=== PATIENT | male | born 1995 | race Caucasian/White ===

== ENCOUNTER 2020-03-28 20:24 | Emergency (ER) | payer OTHER, SELFPAY ==
--- NOTE | ~2020-03-28 | XR_ITS ---
XR ankle RT min 3V 03/28/2020 20:49 Indication: Right ankle pain Procedure: 4 views right ankle Comparison: No prior studies for comparison. Findings: There is an oblique distal fibular fracture with one cortical bone width dorsal displacemen t. No significant angulation. Ankle mortise intact. Moderate lateral soft tissue swelling. Talar dome is normal. 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 Impression: 1: Minimally displaced oblique distal fibular fracture. Reviewed, dictated and finalized at location A. [facility] [employer] Impression: 1: Minimally displaced oblique distal fibular fracture.
[2020-03-28 20:31] VITALS: BP 113/75; PULSE 120; RESP 20; TEMP 36.6; O2SAT 99
[2020-03-28] MEDS: HYDROcodone/acetaminophen (*CRX) 5-325 MG TABLET 1 TAB PO (20:44)
--- NOTE | 2020-03-28 21:08 | ED.GENADULT ---
HPI - General Adult General Chief complaint: Extremity Injury, Lower Stated complaint: ankle injury Time Seen by Provider: 03/28/20 20:38 Source: patient History of Present Illness HPI narrative: Patient is a 24 y/o male complaining of right ankle pain starting 4-5 hours ago. He state that he was carrying a box walking backwards and rolled his right ankle. He denies falling or suffering any other injury. He describes his pain as sharp and rates it as 8/10. He was able to walk initially, but now has difficulty with walking due to increasing pain. Related Data Allergies Allergy/AdvReac Type Severity Reaction Status Date / Time No Known Allergies Allergy Verified 03/28/20 20:36 Review of Systems Constitutional: Constitutional: Denies chills, Denies fever(s), Denies headache(s) and Denies weakness Eyes: Eyes: Denies blurry vision ENT: Denies headache(s) and Denies neck pain Cardiovascular: Cardiovascular: Denies chest pain and Denies dyspnea Respiratory: Respiratory: Denies cough and Denies dyspnea Gastrointestinal: Gastrointestinal: Denies abdominal pain, Denies diarrhea, Denies nausea and Denies vomiting Genitourinary: Genitourinary: Denies hematuria and Denies dysuria Musculoskeletal: Musculoskeletal: Denies back pain, Reports arthralgias (right ankle pain) and Denies neck pain Neurologic: Denies headache(s) and Denies weakness PMFSH Social History Social History Gender identity (if verbalized by the patient): Male Exam Const: General: no acute distress and well developed Orientation/consciousness: oriented to person, oriented to place, oriented to time and patient oriented x3 HENMT: Head: normocephalic Ears: external ears normal General nose exam: Normal external nose present Eyes: General: appearance normal, both eyes and all related structures Conjunctivae: conjunctivae normal Neck: Neck: normal visual inspection and full ROM Chest: Chest palpation & inspection: normal inspection of the chest and no tenderness Resp: Effort & Inspection: normal respiratory effort Auscultation: clear to auscultation bilaterally Cardio: Rate: regular rate Rhythm: regular rhythm GI: GI Palp: No abdominal tenderness and Yes Soft to palpation Skin: General skin exam: normal color and turgor normal Neuro: General: oriented to person, oriented to place, oriented to time and patient oriented x3 Cognition (Neuro): normal cognition Extrem: General: normal to inspection, full ROM and no pedal edema Right lower extremity: ankle Details: tenderness Psych: Appearance: grossly normal Mental Status: mental status grossly normal Affect: normal affect Course Consultations Consultation #1: Discussed with Dr. Stratton, who agrees with plan for splint and discharge. Date: 03/28/20 Time: 21:13 Vital Signs Vital signs: Vital Signs Temperature 36.6 C 03/28/20 20:31 Pulse Rate 120 H 03/28/20 20:31 Respiratory Rate 20 03/28/20 20:31 Blood Pressure 113/75 03/28/20 20:31 Pulse Oximetry 99 03/28/20 20:31 Temperature 36.6 C 03/28/20 21:33 Pulse Rate 72 03/28/20 21:33 Respiratory Rate 16 03/28/20 21:33 Blood Pressure 110/67 03/28/20 21:33 Pulse Oximetry 100 03/28/20 21:33 Medical Decision Making Vital Signs Vital Signs: Vital Signs Temperature 36.6 C 03/28/20 20:31 Pulse Rate 120 H 03/28/20 20:31 Respiratory Rate 20 03/28/20 20:31 Blood Pressure 113/75 03/28/20 20:31 Pulse Oximetry 99 03/28/20 20:31 Temperature 36.6 C 03/28/20 21:33 Pulse Rate 72 03/28/20 21:33 Respiratory Rate 16 03/28/20 21:33 Blood Pressure 110/67 03/28/20 21:33 Pulse Oximetry 100 03/28/20 21:33 Discharge Plan Discharge Clinical Impression: Fracture of distal end of fibula Qualifiers: Encounter type: initial encounter Fracture type: closed Fracture morphology: unspecified fracture morphology Laterality: right Qualified
[2020-03-28 21:33] VITALS: BP 110/67; PULSE 72; RESP 16; TEMP 36.6; O2SAT 100
== END 2020-03-28 21:34 | disposition home or self-care (01) ==
PROVIDERS: Emergency Provider Emergency Medicine; PCP Family Medicine
DX: S82.831A Other fracture of upper and lower end of right fibula, initial encounter for closed fracture (principal)
CPT/HCPCS: 29515; 73610; 99284; A9270

== ENCOUNTER 2023-04-16 23:37 | Emergency (ER) | payer OTHER, SELFPAY ==
[2023-04-16 23:41] VITALS: BP 118/75; PULSE 95; RESP 16; TEMP 36.2; O2SAT 100
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
[2023-04-17 01:14] LABS: Hepatitis B Surface Antigen Negative (Negative)
[2023-04-17 01:18] LABS: HIV 1/2 Ab P24 Ag Result Negative (Negative)
[2023-04-17 01:32] LABS: Hepatitis C Virus Antibody Negative (Negative)
== END 2023-04-17 01:38 ==
LOC: ANHED 23:59
PROVIDERS: Student in an Organized Health Care Education/Training Program; Emergency Provider Physician Assistant; PCP Family Medicine
DX: F11.90 Opioid use, unspecified, uncomplicated (principal); Z20.6 Contact with and (suspected) exposure to human immunodeficiency virus [HIV]; Z02.89 Encounter for other administrative examinations
CPT/HCPCS: 36415; 86703; 86803; 87340; 99283; G0432

== ENCOUNTER 2023-04-30 03:11 | Emergency (ER) | payer OTHER, SELFPAY ==
[2023-04-30 03:12] VITALS: BP 153/105; PULSE 93; RESP 14; TEMP 36.7; O2SAT 100
--- NOTE | 2023-04-30 04:31 | ED.EAR ---
HPI - Ear Problem General Chief complaint: Ear Stated complaint: R ear pain, muffled, ringing Time Seen by Provider: 04/30/23 04:13 History of Present Illness HPI Narrative: Patient is a 27-year-old male who presents to the emergency department this morning complaining of right-sided ear pain. Patient states that the pain started approximately 5 hours prior to arrival. Patient admits that he has been having some sinus issues for the past few days with congestion. He denies any history of recurrent ear infections. Patient denies any fevers or chills. He denies any headaches. There are no other modifying, alleviating, or precipitating factors at this time. Related Data Allergies Allergy/AdvReac Type Severity Reaction Status Date / Time No Known Allergies Allergy Verified 03/28/20 20:36 Review of Systems Review of Systems: All systems are reviewed and are negative unless stated otherwise in the HPI. [facility] Social History Social History (Updated 04/17/23 @ 00:07 by Elicia Estrada PA-C) Substance use: current Substance use type: opiates and IV drugs Other substance usage details: Fentanyl Gender identity (if verbalized by the patient): Male Comments Denies any significant past medical or surgical history. Denies any significant family history. Exam Narrative: General: Alert, awake, afebrile, in no acute distress. HEENT: PERRL, no rhinorrhea, no post nasal drip, oropharynx clear, right tympanic membrane urine see me a with bulging of the tympanic membrane, no pain with pinna manipulation, no tenderness to palpation over the mastoid no drainage. Neck: Trachea midline, no JVD, no lymphadenopathy. Cardiovascular: Regular rate and rhythm, no murmurs, rubs or gallops, no peripheral edema. Respiratory: Clear to auscultation bilaterally, no tachypnea, no wheezing, no rhonchi, no rubs, no respiratory distress. Abdomen: Soft, nontender, nondistended, no rebound, no guarding, no peritoneal signs. Musculoskeletal: No joint swelling or deformity, normal muscle tone. Skin: No rashes or petechia, no signs of infection. Psychiatric: Alert and oriented, normal behavior and judgment for situation. Neurological: Alert and oriented to person, place, and time. Follows all commands. No focal deficits, speech is clear and fluent. Course Vital Signs Vital signs: Vital Signs Temperature 98.1 F 04/30/23 03:12 Pulse Rate 93 04/30/23 03:12 Respiratory Rate 14 04/30/23 03:12 Blood Pressure 153/105 H 04/30/23 03:12 Pulse Oximetry 100 04/30/23 03:12 Oxygen Delivery Room Air 04/30/23 03:12 Temperature 98.1 F 04/30/23 03:12 Pulse Rate 93 04/30/23 03:12 Respiratory Rate 14 04/30/23 03:12 Blood Pressure 153/105 H 04/30/23 03:12 Pulse Oximetry 100 04/30/23 03:12 Oxygen Delivery Room Air 04/30/23 03:12 Medical Decision Making MDM Narrative Medical decision making narrative: The patient was evaluated by myself in the emergency department. History is obtained from patient who is an independent historian and physical exam was performed. External medical records were reviewed at this time. Patient was administered his 1st oral dose of Augmentin in the emergency department and 600 mg of oral ibuprofen. Differential diagnosis considerations include otitis media versus otitis externa. Comorbidities impacting this visit include none. I have evaluated and discussed social determinants of health with the patient that could potentially impact subsequent diagnosis and treatment plans. On repeat assessment of the patient, reevaluation revealed that the patient is doing well and is in no acute distress. Patient symptoms have improved since he arrived to our emergency department. Repeat vital signs were all reviewed and noted to be stable. Differential diagnosis and treatment plan were discussed with the patient at bedside. Patient agrees with discussion and after shared medical decision minor
[2023-04-30] MEDS: IBUPROFEN 600 MG TABLET PO (04:43)
[2023-04-30] MEDS: AMOXICILLIN/CLAVULANATE K 875-125 MG TAB 1 TABLET PO (04:44)
== END 2023-04-30 04:45 | disposition home or self-care (01) ==
PROVIDERS: Emergency Provider Emergency Medicine
DX: H66.91 Otitis media, unspecified, right ear (principal)
CPT/HCPCS: 99283; A9270